=== PATIENT | female | born 1960 | race Caucasian/White ===

== ENCOUNTER 2018-12-12 06:13 | Emergency (ER) | payer OTHER ==
[~2018-12-12] VITALS: Ht 165.1 cm; Wt 58.9 kg
[2018-12-12] MEDS ORDERED: LISI-167 PO (06:31)
[2018-12-12] MEDS ORDERED: SODIUM CHLORIDE FLUSH 10ML SYR IVF ONE (07:00)
[2018-12-12] MEDS ORDERED: ONDANSETRON 2MG/ML, 2ML IVPush ONE (07:00)
[2018-12-12] MEDS ORDERED: MORPHINE SULFATE 4 MG/ML, 1ML IVPush PRN (07:00)
--- NOTE | 2018-12-12 07:08 | NUR ---
PT OOB AMBULATE TO BATHROOM UPRIGHT STEADY GAIT. CLEAN CATCH URINE SAMPLE COLLECTED AND SENT TO LAB
[2018-12-12 07:10] LABS: BASOPHILS % (AUTO) 0 % (0-1); EOSINOPHILS % (AUTO) 2 % (1-7); LYMPHOCYTES % (AUTO) 11 % (22-44); MD NO; MEAN CORPUSCULAR HEMOGLOBIN 29.3 pg (27.0-34.8); MEAN CORPUSCULAR HGB CONC 33.1 g/dL (32.4-35.8); MEAN CORPUSCULAR VOLUME 88.7 fL (80-100); MEAN PLATELET VOLUME 7.9 fL (7.4-10.4); MONOCYTES # (AUTO) 0.61 x10^3/uL (0.2-0.8); MONOCYTES % (AUTO) 5 % (2-9); NEUTROPHILS # (AUTO) 9.74 x10^3/uL (1.8-6.8); NEUTROPHILS % (AUTO) 82 % (42-75); PLATELET COUNT 266 x10^3/uL (130-400); RED BLOOD COUNT 4.49 x10^6/uL (3.82-5.3)
[2018-12-12] MEDS ORDERED: ONDANSETRON 2MG/ML, 2ML ONE (07:18)
[2018-12-12] MEDS ORDERED: MORPHINE SULFATE 4 MG/ML, 1ML ONE (07:19)
[2018-12-12 07:20] LABS: ALANINE AMINOTRANSFERASE 14 U/L (12-78); ALBUMIN 3.7 g/dL (3.4-5.0); ANION GAP 5 mmol/L (5-15); CALCIUM 8.9 mg/dL (8.5-10.1); CHLORIDE 110 mmol/L (98-107)
[2018-12-12 07:23] LABS: ALKALINE PHOSPHATASE 54 U/L (45-117); BILIRUBIN,TOTAL 0.6 mg/dL (0.2-1.0); TOTAL PROTEIN 6.8 g/dL (6.4-8.2)
--- NOTE | 2018-12-12 07:40 | NUR ---
PIV ESTABLISHED AND PT MED FOR NAUSEA AND ABD PAIN 04/26. LABS PENDING. CALL LIGHT W/I REACH.
[2018-12-12 07:49] LABS: MICROSCOPIC INDICATED
[2018-12-12] MEDS ORDERED: OMNIPAQUE 350 MG/ML, 100ML BOTTLE ONE (08:00)
[2018-12-12 08:15] LABS: CULTURE INDICATED? NO
[2018-12-12 08:25] VITALS: BP 129/77
--- NOTE | 2018-12-12 08:30 | NUR ---
Patient/Caregiver given discharge instructions and they have confirmed that they understand the instructions. Patient ambulatory with steady gait.
== END 2018-12-12 09:03 | disposition home or self-care (01) ==
LOC: ED 08:01
DX: K57.20 Diverticulitis of large intestine with perforation and abscess without bleeding (principal); R10.32 Left lower quadrant pain
CPT/HCPCS: 36415; 74177; 80053; 81001; 83605; 85025; 96374; 96375; 99284; J2405; Q9967